=== PATIENT | male | born 1965 ===

== ENCOUNTER 2016-10-19 07:16 | Emergency (ER) | payer MEDICAID, OTHER ==
[2016-10-19 07:24] VITALS: BP 132/95; PULSE 95; O2SAT 100; BMI 23.0
[2016-10-19 07:41] VITALS: RESP 20; TEMP 98.6
--- NOTE | 2016-10-19 08:12 | ED PDOC ---
Lower Extremity Pain/Injury Time Seen by Provider: 10/19/16 07:58 Chief Complaint (Nursing): Lower Extremity Problem/Injury History Per: Patient History/Exam Limitations: no limitations Onset/Duration Of Symptoms: Gradual (approx 1 week) Current Symptoms Are (Timing): Still Present Severity: Mild Legs Front+Back: 1 - pain states prev surgery no trauma Additional History Per: Patient Additional Complaint(s): pt c/o left hip pain radiating to left knee, denies fall, trauma or injury, pt is able to ambulate without assistance. Pt has hx of left hip surgery from 20+ yrs ago. pain worse with weight bearing better with rest. no foot n/t/w no cp or sob no leg swelling Past Medical History Reviewed: Historical Data, Nursing Documentation, Vital Signs Vital Signs: Last Vital Signs Temp 98.6 F 10/19/16 07:39 Pulse 95 H 10/19/16 07:39 Resp 20 10/19/16 07:39 BP 132/95 H 10/19/16 07:39 Pulse Ox 100 10/19/16 07:39 - Medical History PMH: HTN - Family History Family History: States: Unknown Family Hx - Living Arrangements Living Arrangements: With Family - Social History Current smoker - smoking cessation education provided: No Alcohol: > 2 Drinks/Day - Immunization History Hx Tetanus Toxoid Vaccination: Yes (last booster within this past year as per patient) Hx Influenza Vaccination: No Hx Pneumococcal Vaccination: No - Home Medications Home Medications: Ambulatory Orders Medication Instructions Recorded Ibuprofen [Motrin] 600 mg PO Q6 #14 tab 08/19/16 Methocarbamol [Robaxin] 500 mg PO TID #14 tab 08/19/16 oxyCODONE/Acetaminophen [Percocet 1 tab PO TID #6 tab 08/19/16 5/325 mg Tab] Naproxen 500 mg PO BID PRN #3 ect 10/19/16 - Allergies Allergies/Adverse Reactions: Allergies Allergy/AdvReac Type Severity Reaction Status Date / Time No Known Allergies Allergy Verified 10/19/16 07:39 Review of Systems ROS Statement: Except As Marked, All Systems Reviewed And Found Negative Constitutional: Negative for: Fever, Chills Cardiovascular: Negative for: Chest Pain, Palpitations Respiratory: Negative for: Shortness of Breath, SOB with Exertion Gastrointestinal: Negative for: Nausea, Vomiting Musculoskeletal: Positive for: Leg Pain. Negative for: Back Pain Neurological: Negative for: Weakness, Numbness, Incoordination Physical Exam - Reviewed Nursing Documentation Reviewed: Yes Vital Signs Reviewed: Yes - Physical Exam Appears: Positive for: Uncomfortable Head Exam: Positive for: ATRAUMATIC, NORMAL INSPECTION, NORMOCEPHALIC Skin: Positive for: Normal Color Eye Exam: Positive for: Normal appearance Neck: Positive for: Normal, Painless ROM, Supple Cardiovascular/Chest: Positive for: Regular Rate, Rhythm, Chest Non Tender. Negative for: Edema, Gallop, Murmur, Bradycardia, Tachycardia Respiratory: Positive for: Normal Breath Sounds. Negative for: Decreased Breath Sounds, Accessory Muscle Use, Crackles, Wheezing Pulses-Dorsalis Pedis (L): 2+ Pulses-Dorsalis Pedis (R): 2+ Pulses-Post. Tibialis (L): 2+ Pulses-Post. Tibialis (R): 2+ Back: Positive for: Normal Inspection. Negative for: L CVA Tenderness, R CVA Tenderness, Vertebral Tenderness Extremity: Positive for: Normal ROM, Other (well healed surgical scars at left thigh, foot nvi). Negative for: Tenderness, Pedal Edema, Calf Tenderness, Deformity, Swelling Neurologic/Psych: Positive for: Alert, wheel truer II-XII, Oriented, Mood/Affect (calm) , Gait (steady). Negative for: Motor/Sensory Deficits - ECG O2 Sat by Pulse Oximetry: 100 Pulse Ox Interpretation: Normal - Progress ED Course And Treament: pelvis, left hip and femurs 5 views shows prev hardware intact no fx or dislocation Re-evaluation Time: 08:49 Condition: Improved Disposition - Clinical Impression Clinical Impression: Hip pain - Patient ED Disposition Is Patient to be Admitted: No Counseled Patient/Family Regarding: Studies Performed, Diagnosis, Need For Followup - Disposition Referrals: [facility] [Outside] (2 to 3 days) Disposition: Routine/Home Disposition Time: 08:52 Condition: GOOD Prescriptions: Naproxen 500 mg PO BID PRN #3 ect PRN Reason: Pain, Moderate (4-7) Instructions: Hip Pain (ED)
--- NOTE | 2016-10-19 13:27 | RAD ---
Impression: Pain, no trauma Left femur radiograph, single view Comparison: Left femur radiographs performed 07/04/15 Findings: Limited single view. Intramedullary brandi and screw fixation of a remote mid femoral shaft fracture. No acute displaced fracture identified. No obvious dislocation given absence of orthogonal views. No periprosthetic lucency identified to suggest loosening or infection. Impression: Intramedullary brandi and screw fixation of remote mid left femur fracture. No acute findings.
--- NOTE | 2016-10-19 13:31 | RAD ---
Indication: Pain no trauma Pelvis with left hip radiographs Comparison: Left hip/pelvis radiographs performed 07/04/15 Findings: Intramedullary brandi and screw fixation of the femur, partially imaged. No periprosthetic lucency to suggest infection or loosening. Visualized osseous structures appear intact. Soft tissues appear unremarkable. Impression: No acute findings. If high clinical index of suspicion for occult fracture persists, cross-sectional imaging recommended for further evaluation.
--- NOTE | 2016-10-19 13:33 | RAD ---
Indication: Pain no trauma Pelvis with left hip radiographs Comparison: Left hip/pelvis radiographs performed 07/04/15 Findings: Intramedullary brandi and screw fixation of the left femur, partially imaged. No periprosthetic lucency to suggest infection or loosening. Visualized osseous structures appear intact. Soft tissues appear unremarkable. Impression: No acute findings. If high clinical index of suspicion for occult fracture persists, cross-sectional imaging recommended for further evaluation.
== END 2016-10-19 09:14 | disposition home or self-care (01) ==
LOC: H.ER 07:16
DX: M25.552 Pain in left hip (principal); M79.652 Pain in left thigh; I10 Essential (primary) hypertension

== ENCOUNTER 2018-04-04 18:04 | Emergency (ER) | payer MEDICAID, OTHER ==
[2018-04-04 18:05] VITALS: BMI 23.0
[2018-04-04 18:12] VITALS: TEMP 97.9
[2018-04-04 20:41] LABS: ALB/GLOB RATIO 1.3 (1.0-2.1); ALBUMIN 5.1 g/dL (3.5-5.0); ALT/SGPT 37 U/L (21-72); AST/SGOT 59 U/L (17-59); BLOOD UREA NITROGEN 11 mg/dl (9-20); GFR NON-AFRICAN AMERICAN 58
[2018-04-04 21:07] LABS: BASO % 0.4 % (0.0-2.0); EOS % 0.4 % (0.0-4.0); HEMOGLOBIN 14.1 g/dL (12.0-18.0); MEAN CELL VOLUME 88.5 fl (80.0-94.0); MEAN CORPUSCULAR HEMOGLOBIN 29.3 pg (27.0-31.0); MEAN CORPUSCULAR HGB CONC 33.1 g/dL (33.0-37.0); MEAN PLATELET VOLUME 7.2 fl (7.2-11.7); MONO # 0.5 K/uL (0.0-0.8); MONO % 9.2 % (0.0-10.0); NEUT # 4.1 K/uL (1.8-7.0); RBC 4.83 Mil/uL (4.40-5.90); RED CELL DISTRIBUTION WIDTH 14.3 % (11.5-14.5); WHITE BLOOD COUNT 5.7 K/uL (4.8-10.8)
--- NOTE | 2018-04-04 21:38 | ED PDOC ---
HPI: Seizure Time Seen by Provider: 04/04/18 19:18 Chief Complaint (Nursing): Substance Abuse Chief Complaint (Provider): Seizure History Per: Patient, EMS, Family (pt requesting that family translate from slovenian. cousin and mother) Additional Complaint(s): 52 year old male, with a history of alcohol abuse and seizure, presents to the ED via EMS with family, cousin and mother, at bedside complaining of a seizure. Family reports, tonight after patient had dinner, he sat down on the sofa and suddenly had a generalized tonic clonic seizure. Family states his eyes rolled back which lasted about 1 -2 minutes but he did not hit his head as he was already sitting on chair. Patient has not had a seizure in years and doesn't follow up with doctor or take medications. he once was on medications, he thinks keppra, but hasnt taken it. Patient does drink alcohol, however, and had a bunch of bears 1 hour prior to dinner. PMD: none Past Medical History Reviewed: Historical Data, Nursing Documentation, Vital Signs Vital Signs: Last Vital Signs Temp 97.9 F 04/04/18 18:09 Pulse 76 04/04/18 19:32 Resp 16 04/04/18 18:09 BP 136/91 H 04/04/18 18:09 Pulse Ox 99 04/04/18 18:09 - Medical History PMH: HTN, Seizures - Surgical History Surgical History: No Surg Hx - Family History Family History: States: Unknown Family Hx - Social History Current smoker - smoking cessation education provided: Yes (8 cigarettes a day) Alcohol: Other (Alcohol abuse) Drugs: Denies - Immunization History Hx Tetanus Toxoid Vaccination: Yes (last booster within this past year as per patient) Hx Influenza Vaccination: No Hx Pneumococcal Vaccination: No - Home Medications Home Medications: Ambulatory Orders Medication Instructions Recorded Ibuprofen [Motrin] 600 mg PO Q6 #14 tab 08/19/16 RX: Methocarbamol [Robaxin] 500 mg PO TID #14 tab 08/19/16 oxyCODONE/Acetaminophen [Percocet 1 tab PO TID #6 tab 08/19/16 5/325 mg Tab] RX: Naproxen 500 mg PO BID PRN #3 ect 10/19/16 Levetiracetam [Keppra] 500 mg PO BID #10 tablet 04/04/18 - Allergies Allergies/Adverse Reactions: Allergies Allergy/AdvReac Type Severity Reaction Status Date / Time No Known Allergies Allergy Verified 04/04/18 18:09 Review of Systems ROS Statement: Except As Marked, All Systems Reviewed And Found Negative Musculoskeletal: Negative for: Other (head injury) Neurological: Positive for: Seizures Physical Exam - Reviewed Nursing Documentation Reviewed: Yes Vital Signs Reviewed: Yes - Physical Exam Appears: Positive for: Non-toxic, No Acute Distress Head Exam: Positive for: ATRAUMATIC, NORMOCEPHALIC Skin: Positive for: Normal Color, Warm, Dry Eye Exam: Positive for: Normal appearance ENT: Positive for: Normal ENT Inspection Neck: Positive for: Normal, Painless ROM Cardiovascular/Chest: Positive for: Regular Rate, Rhythm. Negative for: Murmur Respiratory: Positive for: Normal Breath Sounds. Negative for: Wheezing, Respiratory Distress Gastrointestinal/Abdominal: Positive for: Normal Exam Extremity: Positive for: Normal ROM Neurologic/Psych: Positive for: Alert (and awake), station jailer II-XII, Oriented (x3), Cerebellar Tests (normal), Gait (stable). Negative for: Motor/Sensory Deficits, Aphasia, Facial Droop - Laboratory Results Result Diagrams: 04/04/18 21:00 04/04/18 21:00 - ECG ECG Rhythm: Positive for: Sinus Rhythm (normal) Rate: 79 O2 Sat by Pulse Oximetry: 99 (RA) Pulse Ox Interpretation: Normal Medical Decision Making Medical Decision Making: Initial Impression: Seizure, history of seizures w non compliance Initial Plan: --Head CT --ECG --Alcohol serum stat --CMP --CBC --Accucheck Patient was requesting to leave but convinced him to stay for CT and bloodwork. 21:59 First set of labs were from the wrong patient. Repeated labs are the true labs. Labs reviewed. Other than alcohol level of 109, everything else was benign. Sugar was slightly elevated. Informed patient of this result. Patient is feeling fine at this time with vitals stable. stable gait, alert and awake. Patient instructed to follow up with his doctor in 1-2 days, as well as with neurologist. . Will refer patient to the clinic for follow up as well as a neurologist for further evaluation of seizures. Patient is awake, alert and oriented. since he thinks he was once on keppra will give first dose here and a few days worth of RX. but he needs to follow up . emphazied that to him and to family. Scribe Attestation: Documented by Steve Mcfarlane acting as a scribe for Sumanth Rosas MD. Provider Scribe Attestation: All medical record entries made by the Scribe were at my direction and personally dictated by me. I have reviewed the chart and agree that the record accurately reflects my personal performance of the history, physical exam, medical decision making, and the department course for this patient. I have also personally directed, reviewed, and agree with the discharge instructions and disposition. Disposition - Clinical Impression Clinical Impression: Seizure, Alcohol intoxication - Patient ED Disposition Is Patient to be Admitted: No Counseled Patient/Family Regarding: Studies Performed, Diagnosis, Need For Followup - Disposition Referrals: [facility] [Outside] [facility] [Outside] Abran Jeffries MD [Medical Doctor] - Disposition: Routine/Home Disposition Time: 22:30 Condition: IMPROVED Additional Instructions: follow up with in clinic in 1-2 days as well as with a neurologist for further evaluation of seizures return to the ED with any worsening or concerning symptoms Prescriptions: Levetiracetam [Keppra] 500 mg PO BID #10 tablet Instructions: Alcohol Use - When Is Drinking a Problem?, Seizures, Adult (DC) Forms: [employer] ([place]ian) Print Language: ERITREAN
[2018-04-04 21:41] LABS: BASO % 0.5 % (0.0-2.0); EOS % 0.5 % (0.0-4.0); HEMOGLOBIN 14.2 g/dL (12.0-18.0); LYMPH # 1.1 K/uL (1.0-4.3); MEAN CORPUSCULAR HEMOGLOBIN 29.1 pg (27.0-31.0); MEAN CORPUSCULAR HGB CONC 33.1 g/dL (33.0-37.0); MEAN PLATELET VOLUME 7.2 fl (7.2-11.7); MONO # 0.5 K/uL (0.0-0.8); MONO % 8.7 % (0.0-10.0); NEUT # 3.9 K/uL (1.8-7.0); NEUT % 70.3 % (50.0-75.0); NRBC % 0.1 % (0.0-0.0); RBC 4.89 Mil/uL (4.40-5.90); RED CELL DISTRIBUTION WIDTH 14.5 % (11.5-14.5); WHITE BLOOD COUNT 5.6 K/uL (4.8-10.8)
[2018-04-04 21:50] LABS: ALB/GLOB RATIO 1.2 (1.0-2.1); ALBUMIN 4.6 g/dL (3.5-5.0); ALT/SGPT 20 U/L (21-72); AST/SGOT 29 U/L (17-59); BLOOD UREA NITROGEN 8 mg/dl (9-20); CALCIUM 8.7 mg/dL (8.4-10.2); GFR NON-AFRICAN AMERICAN > 60
[2018-04-04 22:00] VITALS: PULSE 79
[2018-04-04 22:29] VITALS: BP 142/89; RESP 20
[2018-04-05 06:54] VITALS: O2SAT 99
--- NOTE | 2018-04-05 07:31 | CT ---
Date of service: 04/04/2018 PROCEDURE: CT HEAD WITHOUT CONTRAST. HISTORY: seizure COMPARISON: None available. TECHNIQUE: Axial computed tomography images were obtained through the head/brain without intravenous contrast. Radiation dose: Total exam DLP = 765.72 mGy-cm. This CT exam was performed using one or more of the following dose reduction techniques: Automated exposure control, adjustment of the mA and/or kV according to patient size, and/or use of iterative reconstruction technique. FINDINGS: HEMORRHAGE: No intracranial hemorrhage. BRAIN: Normal tracey-white matter differentiation and density are appreciated throughout the cerebrum and cerebellum with the brainstem appearing unremarkable as well. There is no mass effect. There is no suspicious extra-axial fluid collection and the midline brain anatomy appears diffusely unremarkable. VENTRICLES: Unremarkable. No hydrocephalus. CALVARIUM: No destructive bony lesion or displaced fracture identified including through the skullbase. PARANASAL SINUSES: Unremarkable as visualized. No significant inflammatory changes. MASTOID AIR CELLS: Unremarkable as visualized. No inflammatory changes. OTHER FINDINGS: None. IMPRESSION: Stable unremarkable noncontrast head CT. Concordant preliminary report from [facility], 04/04/2018.
--- NOTE | 2018-04-05 09:42 | CARD ---
APPROVED REPORT Date of service: 04/04/2018 EKG Measurement Heart [id number] <Conclusion> Normal sinus rhythm Early repolarization Normal ECG
== END 2018-04-04 22:51 | disposition home or self-care (01) ==
LOC: H.ER 18:04
DX: F10.129 Alcohol abuse with intoxication, unspecified (principal); G40.409 Other generalized epilepsy and epileptic syndromes, not intractable, without status epilepticus; Y90.5 Blood alcohol level of 100-119 mg/100 ml; F17.210 Nicotine dependence, cigarettes, uncomplicated; I10 Essential (primary) hypertension; Z91.14 Patient's other noncompliance with medication regimen